=== PATIENT | male | born 1950 | race Caucasian/White ===

== ENCOUNTER 2017-03-19 00:06 | Day surgery (SDC) | payer MEDICARE, BC ==
[~2017-03-19] VITALS: Ht 175.3 cm; Wt 82.1 kg
[~2017-03-19 00:06] MED LIST: DUT0.5 PO; FAM20 PO; FAMO20TA28 PO; GENTAMICIN(*) 80 MG/2 ML VIAL 160 MG in NS(*) 0.9% 100 ML BAG 100 ML IVPB ONE; HYDR-385 PO; HYDR-389 PO; IBU200 PO; IBU600 PO; IBU800 PO; IBUP200C74 PO; IBUP800T37 PO; LEV500 PO; LEVO-85 PO; LIDOCAINE/SOD BICARB 8.4% SYR ID ONE; LOR10/325 PO; LOR5/325 PO; MIDAZOLAM 2 MG/2 ML VIAL IVP PRN; NORMOSOL R SOLN(*) 1000 ML BAG 1,000 ML IV PRN; OMEP-125 PO; OMEP10CA40 PO; PHENA200 PO; TERA1CAP36 PO; TERA5CAP57 PO; TERA5CAP59 PO; avodart; cefTRIAXone(*) 1 GM VIAL 1 GM in NS(*) 0.9% 100 ML BAG 100 ML IVPB ONE; prilosec
[2017-03-19 11:06] LABS: PLATELET COUNT, AUTOMATED 244 K/uL (150-450)
[2017-03-19 11:10] VITALS: BP 174/108
[2017-03-19] MEDS ORDERED: LIDOCAINE/SOD BICARB 8.4% SYR ID ONE (12:00)
[2017-03-19] MEDS ORDERED: GENTAMICIN(*) 80 MG/2 ML VIAL 160 MG in DEXTROSE 5%(*) 100 ML BAG 100 ML IVPB ONE (12:00)
[2017-03-19] MEDS ORDERED: NORMOSOL R SOLN(*) 1000 ML BAG 1,000 ML IV PRN (12:00)
[2017-03-19] MEDS ORDERED: MIDAZOLAM 2 MG/2 ML VIAL IVP ONE (12:00)
[2017-03-19] MEDS ORDERED: cefTRIAXone(*) 1 GM VIAL 1 GM in NS(*) 0.9% 100 ML ADDVANT BAG 100 ML IVPB ONE (12:00)
[2017-03-19] MEDS ORDERED: LIDOCAINE MPF 1% 5 ML VIAL ONE ×2 (12:16→13:28)
[2017-03-19] MEDS ORDERED: PROPOFOL EMUL(*) 10MG/ML 20 ML 20 ML ONE (12:16)
[2017-03-19] MEDS ORDERED: DEXAMETHASONE SOD PHOS 10MG/ML ONE ×2 (12:16→13:28)
[2017-03-19] MEDS ORDERED: ONDANSETRON 4 MG/2 ML VIAL ONE ×2 (12:16→13:28)
[2017-03-19] MEDS ORDERED: KETOROLAC 30 MG/ML VIAL ONE (12:16)
[2017-03-19] MEDS ORDERED: hydrALAZINE HCL 20 MG/ML VIAL ONE (13:13)
[2017-03-19] MEDS ORDERED: PROPOFOL EMUL(*) 10MG/ML 20 ML 40 ML ONE (13:28)
--- NOTE | 2017-03-19 13:30 | RADIOLOGY IMAGING REPORT ---
[facility] PATIENT NAME: Thomas Davidson : 1950 MR: [id number] V: [id number] EXAM DATE: ORDERING PHYSICIAN: DOINNE HERNDON TECHNOLOGIST: Location: [facility] [place] Patient: Thomas Davidson : 1950 Visit/Account:[id number] Date of Sevice: 03/19/2017 Technique: PROSTATE BIOPSY HISTORY: Elevated PSA Comparison studies: Prostate ultrasound June 04, 2015 report FINDINGS: Multiple grayscale images were obtained of the prostate. Prostate biopsy was performed by Dr. Herndon. Please see operative report for further details. IMPRESSION: 1. Operative ultrasound images as described above. Report Dictated By: Lacho Juárez DO at 03/19/2017 1:23 PM Report E-Signed By: Lacho Juárez DO at 03/19/2017 1:26 PM WSN:[email or web address]
[2017-03-19] MEDS ORDERED: FAMO20TA28 PO (13:41)
[2017-03-19] MEDS ORDERED: IBUP800T37 PO (13:42)
[2017-03-19] MEDS ORDERED: LEVO-85 PO (13:42)
[2017-03-19] MEDS ORDERED: HYDR-4309 PO (13:43)
[2017-03-19 14:00] VITALS: BP 182/96
[2017-03-19 14:29] VITALS: BP 175/87
[2017-03-19 14:39] VITALS: BP 153/79
[2017-03-19 14:43] VITALS: BP 173/100
--- NOTE | 2017-03-19 19:39 | OPERATIVE REPORT 1 ---
EVENT DATE: March 19, 2017 SURGEON: Dk Gonzalez MD ANESTHESIOLOGIST: Dk Rain MD ANESTHESIA: General anesthetic. PREOPERATIVE DIAGNOSES 1. Elevated prostate-specific antigen, etiology ? 2. 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 POSTOPERATIVE DIAGNOSES 1. Elevated prostate-specific antigen, etiology ? 2. 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 PROCEDURES PERFORMED 1. Prostate ultrasound. 2. Transrectal biopsies times 13. 3. Cystourethroscopy. 4. Hydrodistention of the bladder. DESCRIPTION OF PROCEDURE Under general anesthetic, the patient was prepped and draped in the extended lithotomy position. The transrectal ultrasound probe was introduced transrectally. Scanning of the prostate showed some hypoechoic-type tissue in the right mid lateral area. There were diffuse calculi throughout the prostate, mostly localized to the central zone. The patient's prostate measured approximately 24 g. Biopsies were obtained from the base, mid, and apical areas of the prostate times two bilaterally. An extra sample was obtained from the right mid lateral area of the prostate. At the conclusion of the prostate ultrasound and biopsies, the rectal probe was removed. Digital rectal examination showed minimal blood in the rectal ampulla. The patient was prepped and draped. A 21 panendoscope was admitted through the urethra into the bladder. The urethra was normal. The prostate showed trilobar hyperplasia with obstruction. There was a prominent fibrotic-type median lobe. The bladder showed diffuse 4+ trabeculation throughout. The trigone and ureteral orifices were normal. There was slight intravesical extension of the median lobe to the proximal trigone. There was minimal blood in the bladder. It irrigated clear fairly easily. The bladder was drained. The scope was withdrawn. A digital examination revealed minimal blood in the rectal ampulla. The patient tolerated the procedures satisfactorily and returned to the recovery room in satisfactory condition. This is a 67-year-old white male referred by a [place] physician. Options were discussed with the patient pre-evaluation, and he was agreeable to followup ultrasound and biopsies. The patient had his last prostate ultrasound and biopsies in 2014. The patient is on Flomax twice a day as well as Proscar 5 mg every day. The patient subsequently had his ultrasound, biopsies, and cystoscopy. The patient will be ready for discharge home when alert and functional. The patient will be discharged home on Levaquin, Pepcid, Motrin, and [place] therapy. The patient is to follow up on March 27, 2017, in [place]. The patient is to call the office this coming Thursday for the results of his biopsy. The patient was given my phone number to contact me if he has any problems. JOVON
== END 2017-03-19 14:00 | disposition home or self-care (01) ==
LOC: OR 00:06
DX: R97.20 Elevated prostate specific antigen [PSA] (principal); N40.0 Benign prostatic hyperplasia without lower urinary tract symptoms
CPT/HCPCS: 36415; 52000; 55700; 76942; 85025; 88305; 88344; J0696; J1100; J1580; J1885; J2001; J2405; J2704; J7050; J7060; 82310; 82374; 82435; 82565; 82947; 84132; 84295; 84520

== ENCOUNTER 2017-05-11 02:49 | Inpatient (IN) | payer MEDICARE, BC ==
[2017-05-10 11:18] LABS: PLATELET COUNT, AUTOMATED 200 K/uL (150-450)
[2017-05-10 11:40] LABS: INR 0.95
[2017-05-11] VITALS (24 sets, daily range): BP systolic 94–129; BP diastolic 55–83
[~2017-05-11] VITALS: Ht 175.3 cm; Wt 81.6 kg
[~2017-05-11 02:49] MED LIST changes: +FINA5TAB67 PO; -GENTAMICIN(*) 80 MG/2 ML VIAL 160 MG in NS(*) 0.9% 100 ML BAG 100 ML IVPB ONE; +HYDR-4309 PO; -LIDOCAINE/SOD BICARB 8.4% SYR ID ONE; -MIDAZOLAM 2 MG/2 ML VIAL IVP PRN; -NORMOSOL R SOLN(*) 1000 ML BAG 1,000 ML IV PRN; -cefTRIAXone(*) 1 GM VIAL 1 GM in NS(*) 0.9% 100 ML BAG 100 ML IVPB ONE
[2017-05-11] MEDS ORDERED: LIDOCAINE/SOD BICARB 8.4% SYR ID ONE (07:55)
[2017-05-11] MEDS ORDERED: ceFAZolin(*) 1 GM VIAL 1 GM, GENTAMICIN(*) 80 MG/2 ML VIAL 60 MG in NS 0.9% IRRIGATION ... IR ONE (07:55)
[2017-05-11] MEDS ORDERED: FAMOTIDINE 20 MG TAB PO ONE (07:55)
[2017-05-11] MEDS ORDERED: NORMOSOL R SOLN(*) 1000 ML BAG 1,000 ML IV PRN (07:55)
[2017-05-11] MEDS ORDERED: cefTRIAXone(*) 1 GM VIAL 1 GM in NS(*) 0.9% 100 ML ADDVANT BAG 100 ML IVPB ONE (07:55)
[2017-05-11] MEDS ORDERED: MIDAZOLAM 2 MG/2 ML VIAL IVP PRN (07:55)
[2017-05-11] MEDS ORDERED: POVIDONE IOD 10% OINT 30 GM TB TP ONE (08:57)
[2017-05-11] MEDS ORDERED: ROPIVACAINE 0.2% 20 ML VIAL ONE (09:02)
[2017-05-11] MEDS ORDERED: PROPOFOL EMUL(*) 10MG/ML 20 ML 40 ML ONE (09:07)
[2017-05-11] MEDS ORDERED: ROCURONIUM BROM 10 MG/ML 10 ML ONE (09:07)
[2017-05-11] MEDS ORDERED: fentaNYL CITR 100 MCG/2 ML AMP ONE ×2 (09:53→14:14)
[2017-05-11] MEDS ORDERED: ONDANSETRON 4 MG/2 ML VIAL ONE (11:45)
[2017-05-11] MEDS ORDERED: ePHEDrine 25 MG/5 ML DISP.SYR IVP ONE (11:45)
[2017-05-11] MEDS ORDERED: DEXAMETHASONE SOD PHOS 10MG/ML ONE (11:45)
[2017-05-11] MEDS ORDERED: ISOSULFAN BLUE 1% SLN 50MG/5ML ONE (12:11)
[2017-05-11] MEDS ORDERED: SUGAMMADEX SOD 200 MG/2 ML SDV ONE (13:40)
[2017-05-11] MEDS ORDERED: NEOMYCIN/POLYMYX/BACITR OINT 1 PACKET TP ONE (13:48)
[2017-05-11] MEDS ORDERED: PHENYLEPHRINE 10 MG/1 ML VIAL ONE (14:01)
[2017-05-11 14:22] LABS: PLATELET COUNT, AUTOMATED 162 K/uL (150-450)
[2017-05-11] MEDS ORDERED: GLYCOPYRROLATE 0.2MG/ML 1 ML INJ ONE ×2 (14:35→14:36)
[2017-05-11] MEDS ORDERED: BELLADONNA ALK/OPIUM 60MG SUPP PR PRN (14:45)
[2017-05-11] MEDS ORDERED: ONDANSETRON 4 MG/2 ML VIAL IVP PRN (14:45)
[2017-05-11] MEDS ORDERED: GLYCOPYRROLATE 0.2MG/ML 1 ML INJ IVP PRN (14:45)
[2017-05-11] MEDS ORDERED: ZOLPIDEM TARTRATE 5 MG TAB PO PRN (14:45)
[2017-05-11] MEDS ORDERED: FLUSH 10 ML SYR IVP PRN (14:45)
[2017-05-11] MEDS ORDERED: NALOXONE HCL 0.4 MG/ML VIAL IVP PRN (14:50)
[2017-05-11] MEDS ORDERED: NS(*) 0.9% 1000 ML BAG 1,000 ML ONE (14:51)
[2017-05-11] MEDS ORDERED: [UNRECOGNIZED DRUG - OTHER] IR ONE (14:53)
[2017-05-11] MEDS ORDERED: NS IR ONE (14:53)
[2017-05-11 15:12] LABS: INR 1.09
[2017-05-11] MEDS ORDERED: CALCIUM GLUC 1 GM/NS 100 ML IVPB ONE (15:15)
--- NOTE | 2017-05-11 16:24 | Hospitalist Consultation ---
History of Present Illness Requesting Physician Dr. Gonzalez Reason for Consult Medication Management Chief Complaint s/p radical prostatectomy History of Present Illness He was admitted to ICU after radical prostatectomy. It is reported that surgery had no known complications. History Problems: (1) GERD (gastroesophageal reflux disease) Status: Chronic (2) Prostate cancer Status: Acute Home Meds Reported Medications Finasteride (FINASTERIDE) 5 Mg Tablet, 5 MG PO QDAY 05/06/17 Ibuprofen (IBUPROFEN) 800 Mg Tablet, 1 TAB PO TID Y for PAIN, TAB 03/19/17 Omeprazole (OMEPRAZOLE) 20 Mg Capsule.dr, 1 CAP PO BID, CAP 03/05/17 Terazosin Hcl (TERAZOSIN HCL) 5 Mg Capsule, 5 MG PO DAILY, CAPSULE 05/29/15 Discontinued Reported Medications Hydrocodone Bit/Acetaminophen (NORCO 5-325 TABLET) 1 Each Tablet, 1 EACH PO Q4- 6H Y for PAIN, #30 TAB 03/19/17 Levofloxacin 500 Mg Tab (LEVAQUIN 500 MG TAB) 500 Mg Tablet, 500 MG PO QDAY, # 15 TAB 03/19/17 Famotidine (PEPCID) 20 Mg Tablet, 20 MG PO BID, #20 TAB 03/19/17 Allergies: Coded Allergies: No Known Drug Allergies (Verified , 06/24/11) Patient History: FH: MA (myocardial infarction) FATHER, Hx Smoking: No Smoking Status: Never Smoker Exposure to Second Hand Smoke?: No Caffeine Intake: Coffee, Tea Caffeine/Cups Per Day: 1 PINT OF COFFEE PER DAY. ICE TEA IN SUMMER Hx Alcohol Use: No Hx Substance Use Disorder: No Social Drug Use: Never Review of Systems All Systems Reviewed/Normal: Yes, Except as Noted Exam Vital Signs Vital Signs Date Time Temp Pulse Resp B/P (MAP) Pulse Ox O2 Delivery O2 Flow Rate FiO2 05/11/17 15:25 97.1 63 24 100/55 05/11/17 13:55 97 05/11/17 06:48 Room Air General Appearance: No Acute Distress, Afebrile Cardiovascular: Regular Rate and Rhythm Respiratory: No Respiratory Distress, Clear to Auscultation Psych: Appropriate Mood & Affect Medical Decision Making Data Points Result Diagram: 05/11/17 1410 05/11/17 1410 Assessment and Plan Problems: (1) Prostate cancer Status: Acute Assessment & Plan: s/p radical prostatectomy. Followed by Dr. Gonzalez. (2) GERD (gastroesophageal reflux disease) Status: Chronic Assessment & Plan: He is on chronic treatment with omeprazole. He will be started on Protonix during admission. Venous Thromboembolism Antithrombotics Is Pt On Any Antithrombotics?: No Prophylaxis Tx Contraindicated Pharmacological Contraindicati: Surgical Contraindication KIKI PRADO STADIUM MANAGER May 11, 2017 16:24
[2017-05-11] MEDS ORDERED: IBUP200C74 PO (16:34)
[2017-05-11] MEDS ORDERED: ESOM40CA42 PO (16:34)
[2017-05-11] MEDS: HYDROmorphone PCA 6 MG/30 ML IV PRN (16:53)
[2017-05-11] MEDS: ALBUTEROL 1.25 MG/3ML NEB NEB SCH ×3 (17:21→21:20)
[2017-05-11] MEDS: LR(*) 1000 ML BAG 1,000 ML IV PRN (18:38)
[2017-05-11] MEDS: DOCUSATE SODIUM 100 MG CAP PO SCH (20:53)
[2017-05-11] MEDS: NEOMYCIN/POLYMYX/BACITR OINT 1 PACKET TP SCH (20:53)
[2017-05-11] MEDS: FAMOTIDINE 20 MG TAB PO SCH (20:53)
[2017-05-11] MEDS: BENZALKONIUM CL 1:750 TOP SOLN TP SCH (20:53)
[2017-05-11] MEDS: PANTOPRAZOLE SOD 20 MG TABEC PO SCH (20:53)
[2017-05-12] VITALS (29 sets, daily range): BP systolic 120–151; BP diastolic 61–83; Ht 175.3 cm; Wt 81.6 kg
[2017-05-12] MEDS: LR(*) 1000 ML BAG 1,000 ML IV PRN ×2 (04:03→12:07)
[2017-05-12] MEDS: HYDROmorphone PCA 6 MG/30 ML IV PRN (04:48)
[2017-05-12 05:29] LABS: PLATELET COUNT, AUTOMATED 152 K/uL (150-450)
[2017-05-12] MEDS: ALBUTEROL 1.25 MG/3ML NEB NEB SCH ×2 (06:13→09:01)
--- NOTE | 2017-05-12 07:34 | Hospitalist Progress Note ---
Subjective Progress Notes Subjective He has no complaints this morning. Patient Complains of: Cardiovascular: No: Chest Pain Respiratory: No: Shortness of Breath Physical Exam Vital Signs Date Time Temp Pulse Resp B/P (MAP) Pulse Ox O2 Delivery O2 Flow Rate FiO2 05/12/17 07:06 87 05/12/17 07:00 98.8 15 120/61 (80) 94 Nasal Cannula 2.0 General Appearance: Alert, Awake, No Acute Distress, Afebrile Cardiovascular: Regular Rate and Rhythm Respiratory: No Respiratory Distress, Other (expiratory wheezes noted in upper airway) Extremities: No Edema Psych: Alert & Oriented X3, Appropriate Mood & Affect Result Diagram: 05/12/17 0510 05/12/17 0510 Assessment and Plan Problems: (1) Prostate cancer Status: Acute Assessment & Plan: s/p radical prostatectomy. Followed by Dr. Gonzalez. (2) GERD (gastroesophageal reflux disease) Status: Chronic Assessment & Plan: He is on chronic treatment with omeprazole. He will continue Protonix. Exam Sepsis Risk: No Definite Risk KIKI PRADO CORRUGATOR OPERATOR HELPER May 12, 2017 07:34
[2017-05-12] MEDS: DOCUSATE SODIUM 100 MG CAP PO SCH ×2 (08:58→21:24)
[2017-05-12] MEDS: MULTIVITAMINS TAB PO SCH ×2 (08:58→21:23)
[2017-05-12] MEDS: FAMOTIDINE 20 MG TAB PO SCH (08:58)
[2017-05-12] MEDS: BISACODYL 10 MG SUPP PR SCH ×4 (08:58→21:23)
[2017-05-12] MEDS: NEOMYCIN/POLYMYX/BACITR OINT 1 PACKET TP SCH ×2 (08:59→21:24)
[2017-05-12] MEDS: cefTRIAXone 1 GM VIAL IVP SCH (08:59)
[2017-05-12] MEDS: BENZALKONIUM CL 1:750 TOP SOLN TP SCH ×2 (08:59→21:00)
[2017-05-12] MEDS ORDERED: FUROSEMIDE 20 MG/2 ML VIAL IVP ONE (09:00)
[2017-05-12] MEDS: PANTOPRAZOLE SOD 20 MG TABEC PO SCH ×2 (09:00→21:24)
[2017-05-12] MEDS ORDERED: GENTAMICIN(*) 80 MG/2 ML VIAL 160 MG in NS(*) 0.9% 100 ML BAG 100 ML IVPB ONE (10:00)
[2017-05-12] MEDS ORDERED: ALBUTEROL 1.25 MG/3ML NEB NEB PRN (11:15)
[2017-05-12 15:15] LABS: PLATELET COUNT, AUTOMATED 157 K/uL (150-450)
--- NOTE | 2017-05-12 16:55 | OPERATIVE REPORT 1 ---
EVENT DATE: May 11, 2017 SURGEON: Dk Gonzalez MD DANCE ENTERTAINER: Michael Mark MD ANESTHESIOLOGIST: Dk Rain MD ANESTHESIA: General anesthetic. PREOPERATIVE DIAGNOSIS Prostate cancer. POSTOPERATIVE DIAGNOSIS Prostate cancer. PROCEDURES PERFORMED 1. Radical retropubic prostatectomy. 2. Bilateral pelvic lymph node dissection. DESCRIPTION OF PROCEDURE Under general anesthetic, the patient was prepped and draped in the standard lithotomy position. The urethral Mas was placed, and the bladder was drained. The incision was made from the symphysis pubis to the umbilicus. The subcutaneous tissue was split down to the anterior rectus fascia. Bleeding was controlled with spot coagulation. The rectus fascia was incised throughout its length from the symphysis pubis to the umbilicus. The muscle was split in midline. The space of Retzius was entered. The pelvic tissues were freely reflected from their attachments. This provided adequate exposure for the dissection of the right and left endopelvic lymph nodes. After placement of the Bookwalter retractor, the right endopelvic lymph nodes were dissected and sent to the pathologist for cold section analysis. The left endopelvic lymph nodes were treated in like fashion. Frozen section diagnosis showed no evidence of metastatic disease. The fatty tissue was dissected from the anterior surface of the prostate and bladder neck area. The endopelvic fascia on each side of the prostate that was very small from the prolonged Proscar and Avodart that the patient had been on for several years. The prostate measured approximately 24 g when the prostate ultrasound performed a little over a month ago. The transfixion stitch was placed in the plexus of Santorini in the proximal prostate area. The endopelvic fascia on each side of the prostate was perforated. Moist sponges were placed dependently and anteriorly along the prostate. The anterior urethral tissue was crossclamped down to the anterior urethra. The urethra was exposed. The tissue was transfixed with 2-0 chromic catgut interrupted suture. The urethra was elevated from its bed. The anterior urethra was incised. The Mas was delivered and clamped. The anastomotic sutures were placed at the 2, 12, and 10 o'clock positions. The posterior urethra was incised. The prostate was dissected off of the rectum cephalad towards the bladder neck area. The ampulla and vasa were isolated and hemoclipped. The seminal vesicles were isolated and hemoclipped. The neurovascular bundles bilaterally were close to the prostate and tied off with #1 silk ligatures. The prostate was dissected from its attachments at the bladder neck area. The circular fibers were preserved in my opinion. Indigo carmine was given to the patient, and he had rapid efflux of indigo carmine type urine fairly readily. The bladder neck area was reconstructed, everting the mucosa to the outer edge of the bladder neck muscle. The bladder neck was closed inferior to superior with interrupted 2-0 chromic catgut suture. This was accomplished around an 18-Polish Mas. The packs were removed, and bleeding was checked. The bleeding appeared to be satisfactorily controlled with coagulation current and suture stick ties. The anastomotic sutures were completed at the 5 and 7 o'clock positions. The Mas was delivered per urethra into the bladder, and 10 to 15 mL were placed in the bladder. The anastomosis was completed at the bladder neck area circumferentially. The Bookwalter retractor was removed. The bladder was brought down gently pulling on the catheter to the UG diaphragm. The Mas was secured to the tip of the penis. The sutures were tied down circumferentially. The anastomosis appeared to be satisfactorily performed. There was minimal blood-stained urine on irrigation of the catheter. The pelvis was irrigated with double antibiotic solution. The bleeding appeared to be satisfactorily controlled. The J-Vac drains were placed in the lower quadrants bilaterally. The J-Vacs were secured with 2-0 silk ligatures. There was some bleeding noted from the muscle in the left lower quadrant area. The muscle was transfixed in a [id number] fashion inferiorly and superiorly below and above the J-Vac. This satisfactorily controlled the bleeding. The wound again was irrigated double antibiotic solution. Muscles were reapproximated with interrupted #1 chromic catgut suture, and the fascia was closed with looped PDS. The subcutaneous tissue was irrigated with double antibiotic solution. The subcutaneous tissue was closed with interrupted 3-0 plain catgut. The skin was closed with skin clips. The wounds were cleaned and dressed in the usual fashion. The urethral Mas was secured to the left leg on gentle tension. Estimated blood loss: See anesthesiologist's note for details. The patient was extubated in the OR and was transferred to the recovery room in satisfactory condition. This is a 67-year-old white male complaining of prostate cancer. One sample at the right apex showed 10% involvement. The patient has a known elevated PSA in the mid teens area for many years. The patient has been on Avodart therapy for many years as well. The patient has had previous biopsies that have been negative. Options were discussed with the patient as to radical extirpation versus some type of radiation therapy versus cryosurgery. The patient was offered a robotic-type operative procedure, but wished to proceed at [facility] with a traditional open procedure. That has been satisfactorily accomplished. See operative note for details. The patient will hopefully be ready for discharge home in three to four days, to force fluids 2 L per day. Activities are restricted to careful ambulation. Plan to probably remove the J-Vacs prior to discharge. The patient will be discharged home, to force fluids 2 L per day. Activities are restricted to careful ambulation. He was instructed on routine wound and catheter care. He will be fitted with a leg bag prior to discharge. He is to continue his usual medications. A copy of instructions will be given to the patient. The patient will have my personal cell phone number to contact me if there are any problems. JOVON
[2017-05-12] MEDS: GENTAMICIN/NS 80 MG/100 ML PB 100 ML IVPB SCH (17:36)
[2017-05-13] MEDS: BISACODYL 10 MG SUPP PR SCH ×6 (00:50→20:24)
[2017-05-13 03:05] VITALS: BP 151/88
[2017-05-13] MEDS: GENTAMICIN/NS 80 MG/100 ML PB 100 ML IVPB SCH (06:42)
[2017-05-13 06:53] LABS: PLATELET COUNT, AUTOMATED 172 K/uL (150-450)
[2017-05-13 07:25] VITALS: BP 150/90
[2017-05-13] MEDS: BENZALKONIUM CL 1:750 TOP SOLN TP SCH ×2 (09:00→09:45)
[2017-05-13] MEDS: PANTOPRAZOLE SOD 20 MG TABEC PO SCH ×2 (09:40→20:24)
[2017-05-13] MEDS: NEOMYCIN/POLYMYX/BACITR OINT 1 PACKET TP SCH ×2 (09:41→20:24)
[2017-05-13] MEDS: cefTRIAXone 1 GM VIAL IVP SCH (09:43)
[2017-05-13] MEDS: DOCUSATE SODIUM 100 MG CAP PO SCH ×2 (09:43→20:24)
[2017-05-13] MEDS: MULTIVITAMINS TAB PO SCH ×2 (09:43→20:24)
--- NOTE | 2017-05-13 11:04 | Hospitalist Progress Note ---
Subjective Progress Notes Subjective He has no complaints this morning. Patient Complains of: Cardiovascular: No: Chest Pain Respiratory: No: Shortness of Breath Physical Exam Vital Signs Date Time Temp Pulse Resp B/P (MAP) Pulse Ox O2 Delivery O2 Flow Rate FiO2 05/13/17 10:19 91 Nasal Cannula 0.5 05/13/17 07:25 99.7 16 150/90 (110) 05/13/17 03:05 78 Intake and Output 05/14/17 07:00 Intake Total 240 ml Output Total 280 ml Balance -40 ml Intake Oral 240 ml Output Urine Total 250 ml Drainage Total 30 ml General Appearance: Alert, Awake, No Acute Distress Cardiovascular: Regular Rate and Rhythm Respiratory: No Respiratory Distress, Other (Diminished in bilateral bases) Psych: Alert & Oriented X3, Appropriate Mood & Affect Result Diagram: 05/13/1745 05/13/17644 Assessment and Plan Problems: (1) Prostate cancer Status: Acute Assessment & Plan: s/p radical prostatectomy. Followed by Dr. Gonzalez. (2) GERD (gastroesophageal reflux disease) Status: Chronic Assessment & Plan: He is on chronic treatment with omeprazole. He will continue Protonix. (3) Elevated serum creatinine Status: Acute Assessment & Plan: He has an elevated creatinine this morning at 1.5. His gentamicin has been stopped. He will get a BMP checked at 1300 today, if it is still elevated he will get a kidney ultrasound this afternoon. Exam Sepsis Risk: No Definite Risk KIKI PRADO CUSTOMER SERVICE ADVISOR May 13, 2017 11:04
[2017-05-13 11:46] VITALS: BP 151/82
--- NOTE | 2017-05-13 14:31 | Antimicrobial Stewardship ---
Antimicrobial Time Out Antimicrobial Stewardship MD Service: Other (Urology- Dr. Gonzalez) Indications: Other (Prostatectomy - Prophylaxis) Antimicrobial Used Gentamicin and Ceftriaxone Start Date: May 11, 2017 Culture Results: No Eligible for PO Conversion Eligable for PO Conversion: No Reviewed with Provider Reviewed w/ Provider on Rounds: Yes Date Reviewed w/ Provider: May 13, 2017 Comments Comments 67 yo M with Adenocarcinoma of the Prostate s/p radical prostatectomy on gentamicin and ceftriaxone for prophylaxis following procedure. Scr up to 1.5, recommend stopping gentamicin and recheck labs The [place] [employer] recommends IV cephalosporins in clean contaminated procedures for 24h, and 24h of oral fluoroquinolone or Bactrim at the time of catheter removal. However, prophylaxis for radical prostatectomy is undetermined. Continue Ceftriaxone 1g IV daily, follow WBCs, recommend d/c after a max of 4 days. Pat De León, PharmD, BCOP PAT DE LEÓN May 13, 2017 13:08
[2017-05-13 14:35] VITALS: BP 143/79
[2017-05-13] MEDS ORDERED: GENTAMICIN/NS 80 MG/100 ML PB 100 ML IVPB SCH (15:00)
[2017-05-13] MEDS: APAP/HYDROCODONE 325/5 TAB PO PRN (18:05)
[2017-05-13 18:58] VITALS: BP 149/79
[2017-05-13 23:17] VITALS: BP 162/90
[2017-05-14] MEDS: BISACODYL 10 MG SUPP PR SCH ×4 (00:25→14:10)
[2017-05-14 02:16] VITALS: BP 155/90
[2017-05-14] MEDS: APAP/HYDROCODONE 325/5 TAB PO PRN ×2 (05:48→06:37)
[2017-05-14 06:10] LABS: PLATELET COUNT, AUTOMATED 192 K/uL (150-450)
[2017-05-14 08:38] VITALS: BP 136/99
[2017-05-14] MEDS: DOCUSATE SODIUM 100 MG CAP PO SCH (08:39)
[2017-05-14] MEDS: PANTOPRAZOLE SOD 20 MG TABEC PO SCH (08:40)
[2017-05-14] MEDS: NEOMYCIN/POLYMYX/BACITR OINT 1 PACKET TP SCH (08:40)
[2017-05-14] MEDS: MULTIVITAMINS TAB PO SCH (08:40)
[2017-05-14] MEDS: BENZALKONIUM CL 1:750 TOP SOLN TP SCH (08:41)
[2017-05-14] MEDS ORDERED: ASPIRIN 81 MG CHEW CHEW SCH (09:00)
[2017-05-14] MEDS: cefTRIAXone 1 GM VIAL IVP SCH (09:08)
--- NOTE | 2017-05-14 09:15 | Hospitalist Progress Note ---
Subjective Progress Notes Subjective He has no complaints this morning. Patient Complains of: Cardiovascular: No: Chest Pain Respiratory: Cough, No: Shortness of Breath Physical Exam Vital Signs Date Time Temp Pulse Resp B/P (MAP) Pulse Ox O2 Delivery O2 Flow Rate FiO2 05/14/17 08:58 83 05/14/17 08:53 Nasal Cannula 2.0 05/14/17 08:38 98.7 16 136/99 (111) 05/14/17 02:16 80 Intake and Output 05/15/17 07:00 Output Total 500 ml Balance -500 ml Output Urine Total 500 ml General Appearance: Alert, Awake, No Acute Distress, Afebrile Cardiovascular: Regular Rate and Rhythm Respiratory: No Respiratory Distress, Other (Crackles noted to bilateral lung blanco, has cough, minimal sputum production) GI: Soft and Non-Tender Psych: Alert & Oriented X3, Appropriate Mood & Affect Result Diagram: 05/14/17 0553 05/14/17 0553 Assessment and Plan Problems: (1) Prostate cancer Status: Acute Assessment & Plan: s/p radical prostatectomy. Followed by Dr. Gonzalez. He has crackles to bilateral lung blanco. He has no WBC elevation or fevers. We will continue to follow his CBC and he will try flutter therapy today and nebulizers. (2) GERD (gastroesophageal reflux disease) Status: Chronic Assessment & Plan: He is on chronic treatment with omeprazole. He will continue Protonix. (3) Elevated serum creatinine Status: Acute Assessment & Plan: He has a creatinine this morning of 1.5, which has not changed. His gentamicin was stopped. His urine output has been adequate. Exam Sepsis Risk: No Definite Risk KIKI PRADO AIRCRAFT CLEANING SUPERVISOR May 14, 2017 09:15
[2017-05-14] MEDS: ALBUTEROL 1.25 MG/3ML NEB NEB SCH ×2 (10:23→13:58)
[2017-05-14 11:13] VITALS: BP 166/88
[2017-05-14] MEDS ORDERED: TERAZOSIN HCL 1 MG CAP PO SCH (13:25)
[2017-05-14 14:19] VITALS: BP 153/91
[2017-05-14] MEDS ORDERED: CIPR-214 PO (14:29)
[2017-05-14] MEDS ORDERED: FAMO20TA28 PO (14:45)
[2017-05-14] MEDS ORDERED: IBUP800T37 PO (14:46)
[2017-05-14] MEDS ORDERED: MULT-1078 PO (14:48)
[2017-05-14] MEDS ORDERED: DOCU-416 PO (14:50)
[2017-05-14 15:21] VITALS: BP 125/71
--- NOTE | 2017-06-25 18:23 | DISCHARGE SUMMARY ---
ADMISSION DIAGNOSIS Prostate cancer. DISCHARGE DIAGNOSIS Prostate cancer. ASSOCIATED DISEASES See history and physical. PROCEDURES 1. Radical retropubic prostatectomy. 2. Bilateral pelvic lymph node dissection. CONDITION ON DISCHARGE Satisfactory. SUMMARY This is a 67-year-old white male complaining of prostate cancer. Patient known to have a markedly elevated PSA in the teens for several years. Multiple preliminary ultrasounds and biopsies showed no evidence of prostate cancer. Patient has been on Proscar therapy for several years. Recent follow-up prostate ultrasound biopsy showed prostate cancer. Options were discussed with the patient pretreatment as to radical extirpation versus radiation therapy options. Patient opted for radical extirpation. That has been accomplished. Patient has done relatively well both intra and postoperatively and is ready for discharge home. Patient is to force fluids 2 L per day, activities are restricted to careful ambulation. He will follow up Monday, May 22, 2017. He is to call for an appointment. Patient will be discharged home on oxygen. He is instructed on routine wound and Mas care. Patient may shower as instructed. Patient is to continue his usual medications. Patient was fitted with a leg bag prior to discharge. Patient was sent home with a bedside drainage bag. Home health is to visit daily for cares. JOVON
== END 2017-05-14 16:30 | disposition home health service (06) | DRG 708 ==
LOC: OR 02:49 → ICU 16:00 → MED 05-12 16:11
PROC: 30233P1 Transfusion of Nonautologous Frozen Red Cells into Peripheral Vein, Percutaneous Approach (ICD-10-PCS; 2017-05-11)
PROC: 0VT00ZZ Resection of Prostate, Open Approach (ICD-10-PCS; principal; 2017-05-11 09:16)
PROC: 07BC0ZX Excision of Pelvis Lymphatic, Open Approach, Diagnostic (ICD-10-PCS; 2017-05-11 09:16)
DX: C61 Malignant neoplasm of prostate (principal); K21.9 Gastro-esophageal reflux disease without esophagitis; Z85.828 Personal history of other malignant neoplasm of skin
CPT/HCPCS: 36415; 36430; 76942; 82040; 82247; 82310; 82374; 82435; 82565; 82947; 84075; 84132; 84155; 84295; 84450; 84460; 84520; 85025; 85049; 85379; 85384; 85610; 85730; 86850; 86900; 86901; 86920; 88305; 88307; 88309; 88331; 88332; 94640; 94667; 97162; A4338; C1758; J0610; J0690; J0696; J1100; J1170; J1580; J1940; J2250; J2405; J2704; J2795; J3010; J3490; J7030; J7050; J7120; J7613; P9016; Q9968

== ENCOUNTER → 2017-05-25 | Outpatient (CLI) | payer MEDICARE, BC ==
[2017-05-12 12:22] VITALS: BMI 26.6
[~2017-05-25] MED LIST changes: +CIPR-214 PO; +DOCU-416 PO; +ESOM40CA42 PO; +MULT-1078 PO; +[UNRECOGNIZED DRUG - OTHER] IVPB ONE
--- NOTE | 2017-05-25 12:09 | RADIOLOGY IMAGING REPORT ---
[place] [facility] [place] NAME: Thomas Davidson : 1950 MR: [id number] V: [id number] EXAM DATE: ORDERING PHYSICIAN: DIONNE HERNDON TECHNOLOGIST: Location: [facility] Patient: Thomas Davidson : 1950 Visit/Account:[id number] Date of Sevice: 05/25/2017 Exam type: CYSTOGRAM History: Adenocarcinoma the prostate, prostatectomy Comparison: None. Findings: Cysto-Conray contrast was instilled into the urinary bladder through Mas catheter by Dr. Herndon. Th e bladder appeared small with numerous trabeculations. There appear to be a wide necked diverticulum projecting from the right-sided the bladder. There is suggestion of a small amount of extravasation at the level of the prosthetic urethra. A persistent contrast collection on the postdrainage images projects along the posterior inferior pelvis could be within a large diverticulum although the exact location is not clear. IMPRESSION: 1. As above Report Dictated By: Melody Sevilla MD at 05/25/2017 12:02 PM Report E-Signed By: Melody Sevilla MD at 05/25/2017 12:06 PM WSN:[email or web address]
== END ==
LOC: RAD 01:14
DX: C61 Malignant neoplasm of prostate (principal)
CPT/HCPCS: 51600; 74430; Q9958

== ENCOUNTER → 2017-05-28 | Outpatient (CLI) | payer MEDICARE, BC ==
[2017-05-12 12:22] VITALS: BMI 26.6
[~2017-05-28] MED LIST changes: -[UNRECOGNIZED DRUG - OTHER] IVPB ONE
--- NOTE | 2017-05-28 10:15 | RADIOLOGY IMAGING REPORT ---
FACILITY: [facility] [place] PATIENT NAME: Thomas Davidson : 1950 MR: [id number] V: [id number] EXAM DATE: [id number] ORDERING PHYSICIAN: DIONNE HERNDON TECHNOLOGIST: [facility] Patient: Thomas Davidson : 1950 Visit/Account:[id number] Date of Sevice: 05/28/2017 Exam type: CYSTOGRAM History: Status post prostatectomy. Assessment for catheter removal Comparison: May 25, 2017. Findings: 250 mL of Cysto-Conray was instilled into the urinary bladder through a Mas catheter by Dr. Herndon.. The bladder appeared small with numerous trabeculations similar to the prior study. There Appears to be a wide necked diverticulum projecting from the superior right side the bladder. A rounded lacy ection of contrast posterior inferior to the bladder may represent an additional diverticulum. There appear to be a small amount of extravasation at the level of the prosthetic urethra. IMPRESSION: 1. Small amount of contrast extravasation at the level of the prosthetic urethra appears similar to the recent study Small bladder with trabeculation and bladder diverticula Report Dictated By: Melody Sevilla MD at 05/28/2017 10:09 AM Report E-Signed By: Melody Sevilla MD at 05/28/2017 10:11 AM WSN:[email or web address]
== END ==
LOC: RAD 00:54
DX: C61 Malignant neoplasm of prostate (principal)
CPT/HCPCS: 51600; 74430; Q9958